=== PATIENT | male | born 1965 | race Caucasian/White ===

== ENCOUNTER 2021-03-19 16:19 | Inpatient (IN) | payer OTHER ==
[2021-03-19 18:07] VITALS: BMI 38.9
[2021-03-19] MEDS ORDERED: MAG HYDROX/AL HYDROX/SIMETH 30 ML UNIT-DOSE CUP PO PRN (19:56)
[2021-03-19] MEDS ORDERED: MENTHOL/PHENOL 1 EACH UD MM PRN (19:56)
[2021-03-19] MEDS ORDERED: MAGNESIUM HYDROX 2400MG/30ML ORAL SUSPENSION 30 ML CUP PO PRN (19:56)
[2021-03-19] MEDS ORDERED: BISMUTH SUBSALICYLATE 524 MG/30 ML PO PRN (19:56)
[2021-03-19] MEDS ORDERED: ACETAMINOPHEN 325 MG TABLET (FP) PO PRN ×2 (19:56)
[2021-03-19] MEDS ORDERED: NICOTINE POLACRILEX 2 MG GUM BUC PRN (19:56)
[2021-03-19] MEDS ORDERED: IBUPROFEN 400 MG TABLET (FP) PO PRN (19:56)
[2021-03-19] MEDS ORDERED: ONDANSETRON *ODT* 4 MG TABLET SL PRN (19:56)
[2021-03-19] MEDS ORDERED: MAGNESIUM CITRATE 300 ML BOTTLE PO PRN (19:56)
[2021-03-19] MEDS ORDERED: methaDONE HCL 10 MG TABLET (FOR DETOX USE ONLY) PO ONE (20:08)
[2021-03-19] MEDS ORDERED: cloNIDine HCL 0.1 MG TABLET PO PRN (20:08)
[2021-03-19] MEDS ORDERED: methaDONE HCL 10 MG TABLET (FOR DETOX USE ONLY) ONE (21:17)
[2021-03-19] MEDS: THIAMINE HCL 100 MG TABLET (FP) PO SCH (22:36)
[2021-03-19] MEDS: MELATONIN 5 MG TABLETS PO SCH (22:37)
[2021-03-20] MEDS ORDERED: methaDONE HCL 10 MG TABLET (FOR DETOX USE ONLY) ONE (10:07)
[2021-03-20] MEDS: diazePAM 5 MG TABLET PO PRN ×3 (10:42→22:10)
[2021-03-20] MEDS: PRENATAL VITAMINS W/ FOLIC ACID TABLET (FP) PO SCH (10:42)
[2021-03-20] MEDS: METHOCARBAMOL 500 MG TABLET PO PRN ×2 (10:42→17:40)
[2021-03-20] MEDS: NICOTINE 21 MG/24 HOURS TOPICAL PATCH TD SCH (10:43)
[2021-03-20 11:39] LABS: HEMATOCRIT 40.6 % (35.4-49); HEMOGLOBIN 13.8 GM/dL (11.7-16.9); MCH 31.2 pg (25.7-33.7); MCHC 33.9 g/dl (32.0-35.9); MEAN CELL VOLUME 91.9 fl (80-96); MEAN PLT VOLUME 9.7 fl (7.5-11.1); PLATELET COUNT 135 10^3/uL (134-434); RBC 4.41 M/mm3 (4.00-5.60); RDW 14.1 % (11.9-15.9); WHITE BLOOD COUNT 4.6 K/mm3 (4.0-10.0)
[2021-03-20 11:50] LABS: ALBUMIN 3.5 g/dl (3.4-5.0); BLOOD UREA NITROGEN 16.5 mg/dL (7-18); CREATININE 0.7 mg/dL (0.55-1.3)
[2021-03-20 11:51] LABS: BILIRUBIN,TOTAL 0.6 mg/dL (0.2-1)
[2021-03-20 11:52] LABS: TOT PROT 7.6 g/dl (6.4-8.2)
[2021-03-20 11:57] LABS: CALCIUM 9.3 mg/dL (8.5-10.1)
[2021-03-20 14:38] LABS: HIV INTERPRETATION NEGATIVE (NEGATIVE)
[2021-03-20] MEDS: THIAMINE HCL 100 MG TABLET (FP) PO SCH (22:09)
[2021-03-20] MEDS: MELATONIN 5 MG TABLETS PO SCH (22:09)
[2021-03-21] MEDS: diazePAM 5 MG TABLET PO PRN ×3 (08:45→20:51)
[2021-03-21] MEDS ORDERED: methaDONE HCL 10 MG TABLET (FOR DETOX USE ONLY) PO ONE (10:00)
[2021-03-21] MEDS: NICOTINE 21 MG/24 HOURS TOPICAL PATCH TD SCH (10:29)
[2021-03-21] MEDS: METHOCARBAMOL 500 MG TABLET PO PRN ×2 (10:30→20:53)
[2021-03-21] MEDS: PRENATAL VITAMINS W/ FOLIC ACID TABLET (FP) PO SCH (10:31)
[2021-03-21] MEDS: MELATONIN 5 MG TABLETS PO SCH (22:07)
[2021-03-21] MEDS: THIAMINE HCL 100 MG TABLET (FP) PO SCH (22:07)
[2021-03-22] MEDS: diazePAM 5 MG TABLET PO PRN ×5 (05:33→22:09)
[2021-03-22] MEDS ORDERED: methaDONE HCL 10 MG TABLET (FOR DETOX USE ONLY) ONE (09:23)
[2021-03-22] MEDS: NICOTINE 21 MG/24 HOURS TOPICAL PATCH TD SCH (10:09)
[2021-03-22] MEDS: PRENATAL VITAMINS W/ FOLIC ACID TABLET (FP) PO SCH (10:10)
[2021-03-22] MEDS: METHOCARBAMOL 500 MG TABLET PO PRN ×2 (10:11→18:27)
[2021-03-22] MEDS: MELATONIN 5 MG TABLETS PO SCH (22:08)
[2021-03-22] MEDS: THIAMINE HCL 100 MG TABLET (FP) PO SCH (22:08)
[2021-03-23] MEDS: diazePAM 5 MG TABLET PO PRN (04:36)
[2021-03-23] MEDS ORDERED: methaDONE HCL 10 MG TABLET (FOR DETOX USE ONLY) PO ONE (10:00)
[2021-03-23] MEDS: METHOCARBAMOL 500 MG TABLET PO PRN ×2 (10:23→17:49)
[2021-03-23] MEDS: PRENATAL VITAMINS W/ FOLIC ACID TABLET (FP) PO SCH (10:23)
[2021-03-23] MEDS: NICOTINE 21 MG/24 HOURS TOPICAL PATCH TD SCH (10:24)
[2021-03-23] MEDS: MELATONIN 5 MG TABLETS PO SCH (22:09)
[2021-03-23] MEDS: THIAMINE HCL 100 MG TABLET (FP) PO SCH (22:09)
[2021-03-24] MEDS: METHOCARBAMOL 500 MG TABLET PO PRN (06:03)
[2021-03-24 09:21] VITALS: BP 104/54; PULSE 61; TEMP 96.9
== END 2021-03-24 09:38 | disposition home or self-care (01) | DRG 773 ==
LOC: YASAS 16:19 → Y3N 21:16
PROVIDERS: ADMIT Allergy & Immunology; ATTEND Allergy & Immunology
PROC: HZ2ZZZZ Detoxification Services for Substance Abuse Treatment (ICD-10-PCS; principal; 2021-03-19)
DX: F11.23 Opioid dependence with withdrawal (principal); F17.210 Nicotine dependence, cigarettes, uncomplicated
CPT/HCPCS: 36415; 80053; 85027; 86780; 87389; 93005; 93010; C9803; J0735; U0003; U0005